=== PATIENT | female | born 1985 | race Caucasian/White ===

== ENCOUNTER 2018-04-28 13:03 | Emergency (ER) | payer SELFPAY ==
[~2018-04-28] VITALS: Ht 167.6 cm; Wt 61.8 kg
[2018-04-28 13:15] VITALS: BP 110/64; PULSE 109; RESP 20; Ht 167.6 cm; Wt 61.8 kg
== END 2018-04-28 14:34 | disposition left against medical advice (07) ==
LOC: FTE 13:03
DX: Z53.21 Procedure and treatment not carried out due to patient leaving prior to being seen by health care provider (principal)